=== PATIENT | female | born 1960 | race Caucasian/White ===

== ENCOUNTER 2018-01-20 15:21 | Emergency (ER) | payer SELFPAY ==
[~2018-01-20] VITALS: Ht 160 cm; Wt 86.1 kg
[2018-01-20 15:23] VITALS: BP 117/70
[2018-01-20] MEDS ORDERED: KETOROLAC 30 MG/1 ML ONE (15:58)
[2018-01-20] MEDS ORDERED: AMPICILLIN/SULBACTAM 3 GM IV ONE (16:00)
[2018-01-20] MEDS ORDERED: KETOROLAC 30 MG/1 ML IM ONE (16:00)
[2018-01-20] MEDS ORDERED: KETOROLAC 30 MG/1 ML IVPush ONE (16:00)
[2018-01-20] MEDS ORDERED: SODIUM CHLORIDE FLUSH 10ML SYR IVF ONE (16:00)
== END 2018-01-20 17:25 | disposition home or self-care (01) ==
LOC: ED 17:05
DX: K04.7 Periapical abscess without sinus (principal); F17.200 Nicotine dependence, unspecified, uncomplicated
CPT/HCPCS: 96365; 96375; 99284; J0295; J1885